=== PATIENT | male | born 1990 | race African-American/Black ===

== ENCOUNTER 2019-06-16 21:05 | Emergency (ER) | payer OTHER ==
[2019-06-17] MEDS ORDERED: HYDROCODONE/ACETAMINOPHEN 5-325 MG TABLET PO ONE (03:15)
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
[2019-06-17 06:43] VITALS: BP 158/103
== END 2019-06-17 06:42 | disposition home or self-care (01) ==
LOC: ER 21:05
DX: S16.1XXA Strain of muscle, fascia and tendon at neck level, initial encounter (principal); M79.605 Pain in left leg; M54.2 Cervicalgia; M54.9 Dorsalgia, unspecified; R07.9 Chest pain, unspecified; V87.7XXA Person injured in collision between other specified motor vehicles (traffic), initial encounter
CPT/HCPCS: 71046; 72040; 72100; 72131; 99284